=== PATIENT | female | born 1960 | race Caucasian/White ===

== ENCOUNTER 2021-02-11 15:28 | Emergency (ER) | payer BC, OTHER ==
[~2021-02-11] VITALS: Ht 157.5 cm; Wt 78.5 kg
[2021-02-11 16:04] VITALS: BP 138/95
--- NOTE | 2021-02-11 16:10 | NUR ---
PT CAME TO ER C/O R KNEE AND L HAND PAIN S/P GLF YESTERDAY. PAIN RATED 12/25. DENIES HITTING HEAD. HX OF OSTEOPOROSIS. A&OX4. AMBULATORY W/ MILLARD. PULSES 2+ BILATERALLY IN Addendum: 02/11/21 at 1659 by [email or web address] PULSES 2+ BILATERALLY IN ALL EXTREMITIES. SKIN IS WARM AND DRY. MODERATE SWELLING AND LIMTED ROM OF L WRIST.
--- NOTE | 2021-02-11 16:10 | NUR ---
AMBULATED TO ER BED 13 WITH LOYE AWAITING MD DUMAS.
[2021-02-11] MEDS ORDERED: ACETAMINOPHEN ES 500 MG TABLET PO ONE (16:30)
[2021-02-11] MEDS ORDERED: ACETAMINOPHEN ES 500 MG TABLET ONE (16:40)
[2021-02-11] MEDS ORDERED: IBUP-1955 PO (17:03)
[2021-02-11] MEDS ORDERED: TRAM50TA2 PO (17:03)
--- NOTE | 2021-02-11 17:20 | NUR ---
L HAND PLACED IN SPLINT, R KNEE SHANA WRAPPED
--- NOTE | 2021-02-11 17:30 | NUR ---
Patient discharged to home in stable condition. Written and verbal after care instructions given. Patient verbalizes understanding of instruction.
== END 2021-02-11 17:35 | disposition home or self-care (01) ==
LOC: ER 15:30
DX: M25.561 Pain in right knee (principal); M25.532 Pain in left wrist; I10 Essential (primary) hypertension; Z79.899 Other long term (current) drug therapy; W01.0XXA Fall on same level from slipping, tripping and stumbling without subsequent striking against object, initial encounter; Y93.89 Activity, other specified; Y92.89 Other specified places as the place of occurrence of the external cause; Y99.8 Other external cause status
CPT/HCPCS: 73110; 73564-TC